=== PATIENT | male | born 1970 | race African-American/Black ===

== ENCOUNTER 2018-02-12 23:06 | Inpatient (IN) | payer OTHER ==
[~2018-02-12] VITALS: Ht 172.7 cm; Wt 111.3 kg
[~2018-02-12 23:06] MED LIST: ASPIRIN325 MG PO; BENZTROPINE MESY1 MG PO; CRESTOR40 MG PO; MELOXICAM15 MG PO; METOPROLOL TART25 MG PO; ZETIA10 MG PO; ZIPRASIDONE HCL80 MG PO
[2018-02-12 23:46] LABS: HEMATOCRIT 37.9 % (38.0-50.0); HEMOGLOBIN 12.8 G/DL (12.5-16.6); MCH 31.7 PG (29.0-34.0); MCHC 33.8 G/DL (30.0-36.0); MCV 93.8 FL (86-99); PLATELET COUNT 209 K/uL (156-360); RBC DIS.WIDTH-CV 12.1 % (11.8-14.6); RBC DIS.WIDTH-SD 42.2 % (39-53); RED BLOOD COUNT 4.04 M/uL (4.00-5.50); WHITE BLOOD COUNT 8.9 K/uL (4.1-10.2)
[2018-02-12 23:47] LABS: ALBUMIN 3.8 g/dL (3.2-4.8); CHLORIDE 102 mEq/L (99-109); POTASSIUM 3.7 mEq/L (3.7-5.4); SODIUM 135 mEq/L (136-147)
[2018-02-12 23:49] LABS: GLUCOSE 263 mg/dL (70-99)
[2018-02-12 23:50] LABS: TOTAL PROTEIN 6.6 g/dL (6.4-8.3)
[2018-02-12 23:51] LABS: TOTAL BILIRUBIN 0.6 mg/dL (0.0-1.0)
[2018-02-12 23:53] LABS: ALKALINE PHOSPHATASE 93 IU/L (3-129); CREATININE 0.9 mg/dL (0.6-1.3); GFR ESTIMATE (CALCULATED) > 59 mL/min/ (58.99-99999)
[2018-02-12 23:54] LABS: UREA NITROGEN (BUN) 10 mg/dL (9-23)
[2018-02-12 23:55] LABS: AST (GOT) 24 IU/L (2-34)
[2018-02-12 23:56] LABS: ALT (GPT) 28 IU/L (3-49); LIPASE 15 U/L (1.0-51.0)
[2018-02-13 00:03] LABS: TROP-I INTERPRETATION NEGATIVE; TROPONIN-I 0.02 ng/mL (0.0-0.30)
[2018-02-13] MEDS ORDERED: METFORMIN HCL500 MG PO (01:40)
[2018-02-13] MEDS ORDERED: ROSUVASTATIN CA20 MG PO (01:40)
[2018-02-13] MEDS ORDERED: TRULICITY0.75 MG/0. SC (01:43)
[2018-02-13] MEDS ORDERED: SERTRALINE HCL50 MG PO (01:43)
[2018-02-13] MEDS ORDERED: LISINOPRIL2.5 MG PO (01:44)
[2018-02-13] MEDS ORDERED: EZETIMIBE10 MG PO (01:44)
[2018-02-13 04:02] VITALS: BP 116/67
[2018-02-13 07:21] LABS: TROP-I INTERPRETATION NEGATIVE; TROPONIN-I 0.02 ng/mL (0.0-0.30)
[2018-02-13 07:51] VITALS: BP 150/79
[2018-02-13 12:07] VITALS: BP 131/83
[2018-02-13 12:57] LABS: TROP-I INTERPRETATION NEGATIVE; TROPONIN-I < 0.01 ng/mL (0.0-0.30)
[2018-02-13 15:59] VITALS: BP 135/86
[2018-02-13 19:10] VITALS: BP 124/69
[2018-02-13 23:31] VITALS: BP 121/70
[2018-02-14 03:47] VITALS: BP 121/80
[2018-02-14 06:16] LABS: BASOPHIL (%) 0.4 % (0-1); EOSINOPHIL (%) 3.8 % (0-5); EOSINOPHIL COUNT 0.3 K/uL (0-0.3); HEMATOCRIT 39.6 % (38.0-50.0); HEMOGLOBIN 12.5 G/DL (12.5-16.6); IMMATURE GRANULOCYTE (%) 0.4 % (0.0-0.7); LYMPHOCYTE COUNT 1.7 K/uL (1.0-2.8); MCH 30.4 PG (29.0-34.0); MCHC 31.6 G/DL (30.0-36.0); MCV 96.4 FL (86-99); MONOCYTE (%) 9.1 % (3-12); MONOCYTE COUNT 0.7 K/uL (0-0.8); NEUTROPHIL (%) 62.3 % (45-76); NEUTROPHIL COUNT 4.4 K/uL (1.8-6.4); PLATELET COUNT 203 K/uL (156-360); RBC DIS.WIDTH-CV 12.3 % (11.8-14.6); RBC DIS.WIDTH-SD 43.6 % (39-53); RED BLOOD COUNT 4.11 M/uL (4.00-5.50); WHITE BLOOD COUNT 7.1 K/uL (4.1-10.2)
[2018-02-14 06:50] LABS: CHLORIDE 103 MEQ/L (99-109); CREATININE 0.9 MG/DL (0.6-1.3); GFR ESTIMATE (CALCULATED) > 59 mL/min/ (58.99-99999); GLUCOSE 188 mg/dL (70-99); SODIUM 139 MEQ/L (136-147); UREA NITROGEN (BUN) 12 mg/dL (9-23)
[2018-02-14 07:23] VITALS: BP 136/78
[2018-02-14] MEDS ORDERED: LEVAQUIN750 MG PO (09:26)
[2018-02-14] MEDS ORDERED: DULERA 100 MCG/13 GM IH (09:26)
[2018-02-14] MEDS ORDERED: VENTOLIN HFA18 GM IH (09:26)
[2018-02-14 12:38] LABS: HEMOGLOBIN A1c (GLYCOHEMOGLOB) 9.2 % (Below 5.7)
== END 2018-02-14 11:53 | disposition home or self-care (01) | DRG 195 ==
LOC: EME → EDBD 23:06 → EME 23:06 → EDOF 02-13 02:20 → 5SOUTH 02-13 02:20 → ENRESERV 02-13 02:23 → 5SOUTH 02-13 03:49
PROVIDERS: Emergency Medicine; Hospitalist
DX: J15.9 Unspecified bacterial pneumonia (principal); I25.10 Atherosclerotic heart disease of native coronary artery without angina pectoris; E11.9 Type 2 diabetes mellitus without complications; E78.5 Hyperlipidemia, unspecified; I10 Essential (primary) hypertension; F20.9 Schizophrenia, unspecified
CPT/HCPCS: 71045; 71260; 80048; 80053; 82948; 83036; 83605; 83690; 83880; 84484; 85025; 85027; 87040; 87070; 87205; 87278; 87449; 93005; 93306; 93970; 94640; 94640 76; 94799; 99202; 99281; 99285; J0295; J0456; J1650; J1815; J2405; J7050

== ENCOUNTER 2018-02-23 10:34 | Inpatient (IN) | payer OTHER ==
[~2018-02-23] VITALS: Ht 180.3 cm; Wt 108.2 kg
[2018-02-23] VITALS (8 sets, daily range): BP systolic 94–155; BP diastolic 60–100
[~2018-02-23 10:34] MED LIST changes: +DULERA 100 MCG/13 GM IH; +EZETIMIBE10 MG PO; +LEVAQUIN750 MG PO; +LISINOPRIL2.5 MG PO; +METFORMIN HCL500 MG PO; +ROSUVASTATIN CA20 MG PO; +SERTRALINE HCL50 MG PO; +TRULICITY0.75 MG/0. SC; +VENTOLIN HFA18 GM IH
[2018-02-23 11:47] LABS: COMMENTS - BLOOD GASES A+C+; DEVICE VENT; FI02 100 %; MECHANICAL RATE 16 resp/min; MODE ACPC; PRESSURE CONTROL VENTILATION 35 CM H20; SITE RIGHT RADIAL; TOTAL RESP RATE 16 resp/min
[2018-02-23 11:48] LABS: INSPIRATION TIME 1.35 seconds; PCO2 91 mm Hg (35-45); PEEP 5 CM/H20; PO2 221 mm Hg (80-100); pH 7.08 (7.35-7.45)
[2018-02-23 11:49] LABS: BASE EXCESS -5.3 mEq/L (-3 to +3); BICARBONATE 27 mEq/L (22-26); CARBOXY HGB 1.9 % (0-5); METHEMOGLOBIN 0.6 % (0-1.5)
[2018-02-23 11:50] LABS: APPEARANCE CLEAR ((CLEAR)); BILIRUBIN NEGATIVE; BLOOD NEGATIVE; COLOR YELLOW ((YELLOW)); GLUCOSE (STRIP) >=500; KETONES NEGATIVE; LEUKOCYTES NEGATIVE; NITRITE NEGATIVE; PROTEIN (STRIP) 30; SPECIFIC GRAVITY 1.017 (1.000-1.030); UCUL ADDED? NO; UROBILINOGEN 0.2 MG/DL (0.2-1.0)
[2018-02-23 11:52] LABS: HEMATOCRIT 41.7 % (38.0-50.0); HEMOGLOBIN 13.5 G/DL (12.5-16.6); MCH 31.8 PG (29.0-34.0); MCHC 32.4 G/DL (30.0-36.0); MCV 98.3 FL (86-99); NRBC (%) 0.1 /100 WBC (0-0); RBC DIS.WIDTH-CV 12.3 % (11.8-14.6); RBC DIS.WIDTH-SD 44.9 % (39-53); RED BLOOD COUNT 4.24 M/uL (4.00-5.50); WHITE BLOOD COUNT 15.5 K/uL (4.1-10.2)
[2018-02-23 11:53] LABS: PLATELET COUNT 278 K/uL (156-360)
[2018-02-23 12:02] LABS: CHLORIDE 107 mEq/L (99-109); SODIUM 142 mEq/L (136-147)
[2018-02-23 12:04] LABS: GLUCOSE 254 mg/dL (70-99)
[2018-02-23 12:08] LABS: CREATININE 0.9 mg/dL (0.6-1.3); GFR ESTIMATE (CALCULATED) > 59 mL/min/ (58.99-99999)
[2018-02-23 12:09] LABS: UREA NITROGEN (BUN) 10 mg/dL (9-23)
[2018-02-23 12:15] LABS: TROP-I INTERPRETATION NEGATIVE; TROPONIN-I < 0.01 ng/mL (0.0-0.30)
[2018-02-23] MEDS ORDERED: METFORMIN HCL500 MG PO (12:15)
[2018-02-23 13:13] LABS: COMMENTS - BLOOD GASES A+C+; DEVICE VENT; SITE RIGHT RADIAL
[2018-02-23 13:14] LABS: FI02 80 %; INSPIRATION TIME 1.35 seconds; MECHANICAL RATE 16 resp/min; MODE AC PC; PCO2 66 mm Hg (35-45); PEEP 5 CM/H20; PO2 114 mm Hg (80-100); PRESSURE CONTROL VENTILATION 35 CM H20; TOTAL RESP RATE 16 resp/min; pH 7.19 (7.35-7.45)
[2018-02-23 13:15] LABS: BASE EXCESS -4.3 mEq/L (-3 to +3); BICARBONATE 25.3 mEq/L (22-26); CARBOXY HGB 2.1 % (0-5); METHEMOGLOBIN 0.6 % (0-1.5)
[2018-02-24] VITALS (20 sets, daily range): BP systolic 121–164; BP diastolic 69–91
[2018-02-24 05:46] LABS: BASOPHIL (%) 0.2 % (0-1); EOSINOPHIL (%) 0.8 % (0-5); EOSINOPHIL COUNT 0.1 K/uL (0-0.3); HEMOGLOBIN 12.2 G/DL (12.5-16.6); IMMATURE GRANULOCYTE (%) 0.4 % (0.0-0.7); LYMPHOCYTE (%) 7.6 % (15-42); MCH 30.4 PG (29.0-34.0); MCHC 32.1 G/DL (30.0-36.0); MCV 94.8 FL (86-99); MONOCYTE (%) 8.5 % (3-12); MONOCYTE COUNT 1.1 K/uL (0-0.8); NEUTROPHIL (%) 82.5 % (45-76); NEUTROPHIL COUNT 10.8 K/uL (1.8-6.4); PLATELET COUNT 238 K/uL (156-360); RBC DIS.WIDTH-CV 12.2 % (11.8-14.6); RBC DIS.WIDTH-SD 42.8 % (39-53); RED BLOOD COUNT 4.01 M/uL (4.00-5.50); WHITE BLOOD COUNT 13.1 K/uL (4.1-10.2)
[2018-02-24 06:30] LABS: CHLORIDE 104 MEQ/L (99-109); CREATININE 0.8 MG/DL (0.6-1.3); GFR ESTIMATE (CALCULATED) > 59 mL/min/ (58.99-99999); GLUCOSE 185 mg/dL (70-99); MAGNESIUM 1.9 mg/dl (1.3-2.7); PHOSPHORUS 2.2 mg/dL (2.5-4.9); POTASSIUM 3.9 MEQ/L (3.7-5.4); SODIUM 140 MEQ/L (136-147); UREA NITROGEN (BUN) 14 mg/dL (9-23)
[2018-02-24] MEDS ORDERED: PREDNISONE20 MG PO (12:35)
[2018-02-25] VITALS (10 sets, daily range): BP systolic 116–162; BP diastolic 70–93
[2018-02-25 06:15] LABS: BASOPHIL (%) 0.1 % (0-1); EOSINOPHIL (%) 0 % (0-5); HEMATOCRIT 38.7 % (38.0-50.0); HEMOGLOBIN 12.5 G/DL (12.5-16.6); IMMATURE GRANULOCYTE (%) 0.7 % (0.0-0.7); LYMPHOCYTE (%) 5.9 % (15-42); LYMPHOCYTE COUNT 0.5 K/uL (1.0-2.8); MCHC 32.3 G/DL (30.0-36.0); MONOCYTE (%) 1.3 % (3-12); MONOCYTE COUNT 0.1 K/uL (0-0.8); NEUTROPHIL COUNT 8.2 K/uL (1.8-6.4); PLATELET COUNT 239 K/uL (156-360); RBC DIS.WIDTH-CV 12.3 % (11.8-14.6); RBC DIS.WIDTH-SD 43.7 % (39-53); RED BLOOD COUNT 4.03 M/uL (4.00-5.50)
[2018-02-25 06:48] LABS: CHLORIDE 103 MEQ/L (99-109); CREATININE 0.9 MG/DL (0.6-1.3); GFR ESTIMATE (CALCULATED) > 59 mL/min/ (58.99-99999); MAGNESIUM 2.1 mg/dl (1.3-2.7); POTASSIUM 4.6 MEQ/L (3.7-5.4); SODIUM 138 MEQ/L (136-147); UREA NITROGEN (BUN) 18 mg/dL (9-23)
[2018-02-25 06:49] LABS: GLUCOSE 313 mg/dL (70-99); PHOSPHORUS 3.7 mg/dL (2.5-4.9)
[2018-02-26 04:06] VITALS: BP 122/76
[2018-02-26 05:56] LABS: BASOPHIL (%) 0.1 % (0-1); EOSINOPHIL (%) 0 % (0-5); HEMATOCRIT 37.1 % (38.0-50.0); HEMOGLOBIN 12.2 G/DL (12.5-16.6); IMMATURE GRANULOCYTE (%) 0.8 % (0.0-0.7); LYMPHOCYTE (%) 4.9 % (15-42); LYMPHOCYTE COUNT 0.6 K/uL (1.0-2.8); MCH 31.5 PG (29.0-34.0); MCHC 32.9 G/DL (30.0-36.0); MCV 95.9 FL (86-99); MONOCYTE (%) 4.4 % (3-12); MONOCYTE COUNT 0.6 K/uL (0-0.8); NEUTROPHIL (%) 89.8 % (45-76); NEUTROPHIL COUNT 11.2 K/uL (1.8-6.4); PLATELET COUNT 238 K/uL (156-360); RBC DIS.WIDTH-CV 12.1 % (11.8-14.6); RBC DIS.WIDTH-SD 42.5 % (39-53); RED BLOOD COUNT 3.87 M/uL (4.00-5.50); WHITE BLOOD COUNT 12.5 K/uL (4.1-10.2)
[2018-02-26 06:19] LABS: CHLORIDE 103 MEQ/L (99-109); CREATININE 0.8 MG/DL (0.6-1.3); GFR ESTIMATE (CALCULATED) > 59 mL/min/ (58.99-99999); GLUCOSE 292 mg/dL (70-99); MAGNESIUM 2.1 mg/dl (1.3-2.7); PHOSPHORUS 3.7 mg/dL (2.5-4.9); POTASSIUM 4.4 MEQ/L (3.7-5.4); SODIUM 139 MEQ/L (136-147); UREA NITROGEN (BUN) 19 mg/dL (9-23)
[2018-02-26 07:15] VITALS: BP 143/78
[2018-02-26 11:00] VITALS: BP 131/78
[2018-02-26 15:00] VITALS: BP 137/67
[2018-02-26 18:57] VITALS: BP 134/75
[2018-02-27] VITALS: BP 117/63
[2018-02-27 03:39] VITALS: BP 127/68
[2018-02-27 06:47] LABS: BASOPHIL (%) 0.1 % (0-1); EOSINOPHIL (%) 0.1 % (0-5); HEMATOCRIT 39.2 % (38.0-50.0); HEMOGLOBIN 12.5 G/DL (12.5-16.6); IMMATURE GRANULOCYTE (%) 0.7 % (0.0-0.7); LYMPHOCYTE (%) 8.9 % (15-42); LYMPHOCYTE COUNT 1.1 K/uL (1.0-2.8); MCH 30.3 PG (29.0-34.0); MCHC 31.9 G/DL (30.0-36.0); MCV 95.1 FL (86-99); MONOCYTE COUNT 0.7 K/uL (0-0.8); NEUTROPHIL (%) 84.2 % (45-76); NEUTROPHIL COUNT 10.3 K/uL (1.8-6.4); PLATELET COUNT 257 K/uL (156-360); RBC DIS.WIDTH-SD 41.7 % (39-53); RED BLOOD COUNT 4.12 M/uL (4.00-5.50); WHITE BLOOD COUNT 12.2 K/uL (4.1-10.2)
[2018-02-27 07:20] VITALS: BP 137/86
[2018-02-27 07:44] LABS: CHLORIDE 102 MEQ/L (99-109); CREATININE 0.8 MG/DL (0.6-1.3); GFR ESTIMATE (CALCULATED) > 59 mL/min/ (58.99-99999); GLUCOSE 267 mg/dL (70-99); PHOSPHORUS 3.7 mg/dL (2.5-4.9); POTASSIUM 4.2 MEQ/L (3.7-5.4); SODIUM 139 MEQ/L (136-147); UREA NITROGEN (BUN) 21 mg/dL (9-23)
[2018-02-27 10:15] LABS: HEMOGLOBIN A1c (GLYCOHEMOGLOB) 8.4 % (Below 5.7)
[2018-02-27] MEDS ORDERED: VENTOLIN HFA18 GM IH (12:05)
[2018-02-27] MEDS ORDERED: DULERA 100 MCG/13 GM IH (12:05)
[2018-02-27] MEDS ORDERED: PREDNISONE10 MG PO (12:05)
[2018-02-27] MEDS ORDERED: AZITHROMYCIN500 M1 PO (12:05)
== END 2018-02-27 13:50 | disposition home or self-care (01) | DRG 208 ==
LOC: EME 10:34 → 5EAST 13:07 → EDOF 13:07 → 4WEST 13:07 → ENRESERV 13:08 → 4WEST 16:10 → ENRESERV 02-25 15:22 → 5EAST 02-25 18:05
PROVIDERS: Emergency Medicine; Internal Medicine; Internal Medicine Critical Care Medicine
PROC: 5A1945Z Respiratory Ventilation, 24-96 Consecutive Hours (ICD-10-PCS; principal; 2018-02-23)
PROC: 0BH17EZ Insertion of Endotracheal Airway into Trachea, Via Natural or Artificial Opening (ICD-10-PCS; principal; 2018-02-23)
DX: J96.01 Acute respiratory failure with hypoxia (principal); J96.02 Acute respiratory failure with hypercapnia; J44.1 Chronic obstructive pulmonary disease with (acute) exacerbation; J45.901 Unspecified asthma with (acute) exacerbation; D72.829 Elevated white blood cell count, unspecified; T38.0X5A Adverse effect of glucocorticoids and synthetic analogues, initial encounter; Z91.14 Patient's other noncompliance with medication regimen; E11.9 Type 2 diabetes mellitus without complications; I25.10 Atherosclerotic heart disease of native coronary artery without angina pectoris; I10 Essential (primary) hypertension; E78.5 Hyperlipidemia, unspecified; K21.9 Gastro-esophageal reflux disease without esophagitis; F32.9 Major depressive disorder, single episode, unspecified; F41.9 Anxiety disorder, unspecified; F20.9 Schizophrenia, unspecified; E66.9 Obesity, unspecified; Z68.33 Body mass index [BMI] 33.0-33.9, adult; Z87.01 Personal history of pneumonia (recurrent); Z95.5 Presence of coronary angioplasty implant and graft
CPT/HCPCS: 36600; 71045; 80048; 81003; 82803; 82948; 83036; 83605; 83735; 84100; 84484; 85025; 85027; 87040; 87070; 87205; 87641; 93005; 94002; 94003; 94640; 94640 76; 94760; 94799; 99202; 99281; 99285; J1650; J1815; J2060; J2704; J2930; J7030; J7042; J7512; S0028